=== PATIENT | female | born 1975 | race Caucasian/White ===

== ENCOUNTER → 2022-12-27 | Day surgery (SDC) | payer OTHER | END | disposition home or self-care (01) | LOC: JRADIR 10:51 | PROVIDERS: ATTEND Internal Medicine Endocrinology, Diabetes & Metabolism | PROC: 0G9H3ZX Drainage of Right Thyroid Gland Lobe, Percutaneous Approach, Diagnostic (ICD-10-PCS; principal; 2022-12-27) | DX: E04.1 Nontoxic single thyroid nodule (principal) | CPT/HCPCS: 10005; 76942; 88173; 88305-TC ==

== ENCOUNTER 2023-08-09 16:55 | Emergency (ER) | payer OTHER ==
[2023-08-09 17:09] VITALS: BP 136/73; PULSE 88; RESP 17; TEMP 98.3; BMI 33.3
== END 2023-08-09 18:50 | disposition home or self-care (01) ==
LOC: JERFT 16:55
DX: S93.401A Sprain of unspecified ligament of right ankle, initial encounter (principal); X50.1XXA Overexertion from prolonged static or awkward postures, initial encounter; Y93.01 Activity, walking, marching and hiking
CPT/HCPCS: 73610-TC-RT-FY; 73630-TC-RT-FY; 99283-25